=== PATIENT | female | born 1965 | race Caucasian/White ===

== ENCOUNTER → 2016-06-08 | Day surgery (SDC) | payer BC, OTHER ==
[~2016-06-08] MED LIST: BUPR150CR PO; IMIT50TA PO; LACTATED RINGER'S 1000 ML INJ 1,000 ML ONE; LEXA10TA PO; MOBI7.5T PO; PROPOFOL 100 MG/10 ML INJ IV ONE; PROPOFOL 500 MG/50 ML BTL IV ONE
== END | disposition home or self-care (01) ==
LOC: ESDC 08:53
PROVIDERS: ATTEND Internal Medicine Gastroenterology
DX: R19.7 Diarrhea, unspecified (principal); D12.4 Benign neoplasm of descending colon; K57.90 Diverticulosis of intestine, part unspecified, without perforation or abscess without bleeding; R10.13 Epigastric pain; R11.10 Vomiting, unspecified
CPT/HCPCS: 00740; 00810; 43235; 45380; 45385; 88305; J3010; J7120

== ENCOUNTER 2016-12-17 08:01 | Emergency (ER) | payer SELFPAY ==
[~2016-12-17] VITALS: Ht 170.2 cm; Wt 137.0 kg
[~2016-12-17 08:01] MED LIST changes: -LACTATED RINGER'S 1000 ML INJ 1,000 ML ONE; -PROPOFOL 100 MG/10 ML INJ IV ONE; -PROPOFOL 500 MG/50 ML BTL IV ONE
[2016-12-17 08:20] VITALS: BP 124/64; PULSE 93; RESP 16; TEMP 98.2; O2SAT 98
[2016-12-17] MEDS ORDERED: METF500T PO (08:30)
[2016-12-17] MEDS ORDERED: LISI2.5T3 PO (08:30)
--- NOTE | 2016-12-17 08:35 | PD ---
HPI Chief Complaint: Injury Time Seen by Provider: 08:32 Travel History International Travel<30 days: No Contact w/Intl Traveler<30days: No Traveled to known affect area: No History of Present Illness HPI This patient complains of injury to her right ankle. Duration is one day. This happened yesterday evening. She tripped when she stepped into a divot in the ground. She rolled her right ankle. She has pain with weightbearing. PFSH Past Medical History Asthma: Yes (SEASONAL) Anxiety: Yes Depression: Yes Cancer: No Cardiovascular Problems: Yes (HTN) Diminished Hearing: No Hypertension: Yes Respiratory: Yes (seasonal asthma,PNEUMONIA) Immunizations Current: Yes ?: Not LMP: MENOPAUSAL Menopausal: Yes Past Surgical History Cholecystectomy: Yes Tonsillectomy: Yes (1972) Other Surgery: Yes (gastric bypass 2008) Social History Alcohol Use: Yes (states 1/2 - 1 bottle of wine daily ) Tobacco Use: No Substance Use: No (Denies) Allergies-Medications (Allergen,Severity, Reaction): Coded Allergies: Morphine (Unverified Allergy, Severe, "MY BODY SHUTS DOWN", 12/17/16) Amoxicillin (Verified Allergy, Intermediate, VOMITING, 12/17/16) Penicillin (Verified Allergy, Intermediate, UNKNOWN, 12/17/16) Adhesives (Verified Allergy, Unknown, welts, 12/17/16) Codeine (Verified Allergy, Unknown, Nausea/Vomiting, 12/17/16) Reported Meds & Prescriptions Reported Meds & Active Scripts Active Percocet (Oxycodone-Acetaminophen) 5-325 mg Tab 1 Tab PO Q6H PRN Imitrex (Sumatriptan Succinate) 50 Mg Tab 50 Mg PO ONCE PRN If a satisfactory response has not been obtained at 2 hours, a second dose may be administered Reported Lisinopril 2.5 Mg Tab Unknown Dose PO DAILY Metformin (Metformin HCl) 500 Mg Tab 500 Mg PO BIDPC With meals Lexapro (Escitalopram Oxalate) 10 Mg Tab 10 Mg PO DAILY Wellbutrin SR 12 HR (Bupropion HCl) 150 Mg Tab 150 Mg PO Q12HR Review of Systems General / Constitutional: No: Fever Eyes: No: Visual changes HENT: No: Headaches Cardiovascular: No: Chest Pain or Discomfort Respiratory: No: Shortness of Breath Gastrointestinal: No: Abdominal Pain Genitourinary: No: Dysuria Musculoskeletal: Positive: Pain Skin: No Rash Neurologic: No: Weakness Psychiatric: No: Depression Endocrine: No: Polydipsia Hematologic/Lymphatic: No: Easy Bruising Physical Exam Narrative SKIN: Focused skin assessment reveals no rash or ulcers. Skin is warm and dry. Palpation shows no induration or nodules. Psych: Normal mood and affect. Normal insight and judgment. Right ankle: There is some tenderness and swelling about the lateral malleolus. No open wound. Neurovascularly intact. Data Data Last Documented VS Vital Signs Date Time Temp Pulse Resp B/P Pulse Ox O2 Delivery O2 Flow Rate FiO2 12/17/16 08:20 98.2 93 16 124/64 98 Orders Ankle, Complete ([id number]) (12/17/16 ) MDM Medical Decision Making Medical Screen Exam Complete: Yes Emergency Medical Condition: Yes Medical Record Reviewed: Yes Differential Diagnosis Ankle fracture, ankle sprain, dislocation Narrative Course I have reviewed the patient's electronic medical record. I Reviewed her right ankle x-rays which show a nondisplaced distal fibular fracture Ice applied I placed her in a splint and gave her crutches Diagnosis Primary Impression: Right fibular fracture Qualified Code: S82.831A - Other closed fracture of distal end of right fibula , initial encounter Additional Instructions: The patient was advised to follow up with orthopedist and return if they worsen. The patient was warned about potential sedation for the medications they will receive on prescription. Med/Other Pt SpecificInfo: Prescription(s) given Scripts Oxycodone-Acetaminophen (Percocet)5-325 mg Tab1 Tab PO Q6H PRN (PAIN) #20 TAB Ref 0 Prov:Terence Carnes MD 12/17/16 Disposition: 01 DISCHARGE HOME Condition: Stable Terence Carnes MD Dec 17, 2016 08:35
--- NOTE | 2016-12-17 09:36 | RADRPT ---
EXAM DATE/TIME: 12/17/2016 09:04 [facility] COMPARISON: No previous studies available for comparison. INDICATIONS : Lateral right ankle pain and swelling. Patient fell yesterday. MEDICAL HISTORY : None. SURGICAL HISTORY : None. ENCOUNTER: Initial ACUITY: 2 days PAIN SCORE: 10/10 LOCATION: Right lateral ankle. FINDINGS: There is horizontal lucency involving the distal fibula consistent with probable nondisplaced fibular fracture. Soft tissue swelling is noted along the lateral malleolus. Plantar and Achilles calcanea l spurring is noted. There is also calcification involving the distal fibers of the Achilles tendon. CONCLUSION: 1. Horizontal linear lucency involving the distal fibula consistent with nondisplaced fracture. Cli nical correlation is recommended. 2. Soft tissue swelling involving the lateral malleolus. 3. Prominent plantar and Achilles calcaneal spurring as well as calcification involving the distal f ibers of the Achilles tendon. Meir Real MD on December 17, 2016 at 9:21 Board Certified Radiologist. This report was verified electronically.
[2016-12-17] MEDS ORDERED: PERC5TAB12 PO (09:55)
[2016-12-17 11:00] VITALS: BP 136/82
== END 2016-12-17 11:02 | disposition home or self-care (01) ==
LOC: PHED 08:01
DX: S82.831A Other fracture of upper and lower end of right fibula, initial encounter for closed fracture (principal); W17.2XXA Fall into hole, initial encounter
CPT/HCPCS: 29515; 73610; 99283; E0113

== ENCOUNTER → 2016-12-25 | Outpatient (CLI) | payer SELFPAY ==
[~2016-12-25] MED LIST changes: +LISI2.5T3 PO; +METF500T PO; -MOBI7.5T PO; +PERC5TAB12 PO
== END ==
LOC: HORT 12:07
PROVIDERS: ATTEND Orthopaedic Surgery
DX: Z46.89 Encounter for fitting and adjustment of other specified devices (principal); S82.821A Torus fracture of lower end of right fibula, initial encounter for closed fracture
CPT/HCPCS: L2114

== ENCOUNTER 2017-08-13 11:28 | Observation (INO) | payer SELFPAY ==
[~2017-08-13] VITALS: Ht 170.2 cm; Wt 135.9 kg
[2017-08-13 11:32] VITALS: BP 179/110; PULSE 104; RESP 16; TEMP 98.4; O2SAT 99
--- NOTE | 2017-08-13 11:55 | PD ---
HPI Chief Complaint: Neuro Symptoms/ Deficits Time Seen by Provider: 11:52 Travel History International Travel<30 days: No Contact w/Intl Traveler<30days: No Traveled to known affect area: No History of Present Illness HPI 52-year-old male female patient presents to the ER today, states that 2 days ago she had some left-sided chest discomfort and tingling in her left fingers that went away, and has been nauseous for the last few days, and states that she is having that feeling again and feels generally weak. She denies any fevers, abdominal pains, vomiting, or other issues. Modifying Factors: None Associated Signs & Symptoms: Nausea, left-sided chest discomfort, tingling in the left hand, general weakness Risk Factors: None PFSH Past Medical History Asthma: Yes (SEASONAL) Anxiety: Yes Depression: Yes (intermittent) Cancer: No Cardiovascular Problems: Yes (HTN) Diminished Hearing: No Hypertension: Yes Respiratory: Yes (seasonal asthma,PNEUMONIA) Immunizations Current: Yes Menopausal: Yes Past Surgical History Cholecystectomy: Yes Tonsillectomy: Yes (1972) Other Surgery: Yes (gastric bypass 2008) Social History Alcohol Use: Yes (states 2-3 glasses of wine daily ) Tobacco Use: No (never) Substance Use: No (Denies) Allergies-Medications (Allergen,Severity, Reaction): Coded Allergies: morphine (Unverified Allergy, Severe, "MY BODY SHUTS DOWN", 08/13/17) amoxicillin (Unverified Allergy, Intermediate, VOMITING, 08/13/17) penicillin G (Unverified Allergy, Intermediate, UNKNOWN, 08/13/17) adhesive (Unverified Allergy, Unknown, welts, 08/13/17) codeine (Unverified Allergy, Unknown, Nausea/Vomiting, 08/13/17) Reported Meds & Prescriptions Reported Meds & Active Scripts Active Imitrex (Sumatriptan Succinate) 50 Mg Tab 50 Mg PO ONCE PRN If a satisfactory response has not been obtained at 2 hours, a second dose may be administered Reported Lisinopril-Hctz 20-12.5 mg Tab (Lisinopril/Hydrochlorothiazide) 20 Mg-12.5 Mg Tablet 1 Tab PO DAILY Metformin (Metformin HCl) 500 Mg Tab 500 Mg PO BIDPC With meals Lexapro (Escitalopram Oxalate) 10 Mg Tab 10 Mg PO DAILY Wellbutrin SR 12 HR (Bupropion HCl) 150 Mg Tab 150 Mg PO Q12HR Review of Systems Except as stated in HPI: all other systems reviewed are Neg Physical Exam Narrative GENERAL: Well-developed middle-age female patient currently and mild distress. Awake and oriented 3. SKIN: Focused skin assessment warm/dry. HEAD: Atraumatic. Normocephalic. EYES: Pupils equal and round. No scleral icterus. No injection or drainage. ENT: No nasal bleeding or discharge. Mucous membranes pink and moist. NECK: Trachea midline. No JVD. Supple. CARDIOVASCULAR: Regular rate and rhythm. No murmur appreciated. Pulses are present and equal bilaterally. RESPIRATORY: No accessory muscle use. Clear to auscultation. Breath sounds equal bilaterally. GASTROINTESTINAL: Abdomen soft, non-tender, nondistended. Hepatic and splenic margins not palpable. MUSCULOSKELETAL: No obvious deformities. No clubbing. No cyanosis. No edema. NEUROLOGICAL: Awake and alert. No obvious cranial nerve deficits. Motor grossly within normal limits. Normal speech. No pronator drift. PSYCHIATRIC: Appropriate mood and affect; insight and judgment normal. Data Data Last Documented VS Vital Signs Date Time Temp Pulse Resp B/P (MAP) Pulse Ox O2 Delivery O2 Flow Rate FiO2 08/13/17 13:13 90 18 182/103 (129) 99 Room Air 08/13/17 11:32 98.4 Orders Orders Electrocardiogram (08/13/17 11:52) Complete Blood Count With Diff (08/13/17 11:52) Comprehensive Metabolic Panel (08/13/17 11:52) Magnesium (Mg) (08/13/17 11:52) Ckmb (Isoenzyme) Profile (08/13/17 11:52) Troponin I (08/13/17 11:52) Act Partial Throm Time (Ptt) (08/13/17 11:52) Prothrombin Time / Inr (Pt) (08/13/17 11:52) Chest, Single Ap (08/13/17 11:52) Ct Brain W/O Iv Contrast(Rout) (08/13/17 11:52) Ecg Monitoring (08/13/17 11:52) Iv Access Insert/Monitor (08/13/17 11:52) Oximetry (08/13/17 11:52) Sodium Chloride 0.9% Flush (Ns Flush) (08/13/17 12:00) Metoclopramide Inj (Reglan Inj) (08/13/17 13:00) Admit Order (Ed Use Only) (08/13/17 13:36) Labs Laboratory Tests Test 08/13/17 12:25 White Blood Count 5.5 TH/MM3 Red Blood Count 4.66 MIL/MM3 Hemoglobin 15.1 GM/DL Hematocrit 46.1 % Mean Corpuscular Volume 99.0 FL Mean Corpuscular Hemoglobin 32.5 PG Mean Corpuscular Hemoglobin Concent 32.9 % Red Cell Distribution Width 15.5 % Platelet Count 224 TH/MM3 Mean Platelet Volume 7.9 FL Neutrophils (%) (Auto) 71.9 % Lymphocytes (%) (Auto) 18.0 % Monocytes (%) (Auto) 8.3 % Eosinophils (%) (Auto) 0.6 % Basophils (%) (Auto) 1.2 % Neutrophils # (Auto) 3.9 TH/MM3 Lymphocytes # (Auto) 1.0 TH/MM3 Monocytes # (Auto) 0.5 TH/MM3 Eosinophils # (Auto) 0.0 TH/MM3 Basophils # (Auto) 0.1 TH/MM3 CBC Comment DIFF FINAL Differential Comment Prothrombin Time 11.4 SEC Prothromb Time International Ratio 1.1 RATIO Activated Partial Thromboplast Time 26.8 SEC Blood Urea Nitrogen 9 MG/DL Creatinine 0.95 MG/DL Random Glucose 101 MG/DL Total Protein 7.2 GM/DL Albumin 3.3 GM/DL Calcium Level 9.3 MG/DL Magnesium Level 1.9 MG/DL Alkaline Phosphatase 125 U/L Aspartate Amino Transf (AST/SGOT) 37 U/L Alanine Aminotransferase (ALT/SGPT) 27 U/L Total Bilirubin 1.0 MG/DL Sodium Level 137 MEQ/L Potassium Level 3.6 MEQ/L Chloride Level 98 MEQ/L Carbon Dioxide Level 27.1 MEQ/L Anion Gap 12 MEQ/L Estimat Glomerular Filtration Rate 62 ML/MIN Total Creatine Kinase 95 U/L Troponin I LESS THAN 0.02 NG/ML MDM Medical Decision Making Medical Screen Exam Complete: Yes Emergency Medical Condition: Yes Medical Record Reviewed: Yes Interpretation(s) EKG shows NSR, no ST elevation or depression, and no arrhythmias. No significant T-wave inversions. Laboratory Tests Test 08/13/17 12:25 Hematocrit 46.1 % (35.0-46.0) Neutrophils (%) (Auto) 71.9 % (16.0-70.0) Monocytes (%) (Auto) 8.3 % (0.0-8.0) Albumin 3.3 GM/DL (3.4-5.0) Alkaline Phosphatase 125 U/L (45-117) Estimat Glomerular Filtration Rate 62 ML/MIN (>89) Troponin I LESS THAN 0.02 NG/ML Last [address] 08/13/17 1152 Signed Impressions: Service Date/Time: Sunday, August 13, 2017 12:07 - CONCLUSION: No acute intracranial abnormality is identified. Juan Garcia MD Chest X-Ray 08/13/17 1152 Signed Impressions: Service Date/Time: Sunday, August 13, 2017 12:17 - CONCLUSION: No acute cardiopulmonary abnormality is identified. Juan Garcia MD Differential Diagnosis Finger tingling, left-sided chest discomfort, nausea, general weakness: Dehydration versus metabolic issues versus dysrhythmias versus ACS versus anxiety versus acute intracranial processes Narrative Course Patient has no signs of significant focal neurological deficits. CT the brain was negative for any signs of acute intracranial processes. Chest x-ray was unremarkable. Pulses are present and equal bilaterally. EKG and troponins were negative. At this point, I am fairly concerned about the chest discomfort and my plan would be to admit her for further evaluation and a chest pain center. Case was discussed with Dr. Calhoun for admission. Diagnosis Primary Impression: Chest pain Admitting Information Admitting Physician Requests: Admit Serina Cole MD Aug 13, 2017 11:55
[2017-08-13] MEDS ORDERED: SODIUM CHLORIDE 0.9% FLUSH 10 ML FLUSH IVF PRN (12:00)
[2017-08-13] MEDS ORDERED: LISI20TA PO (12:12)
--- NOTE | 2017-08-13 12:28 | RADRPT ---
EXAM DATE/TIME: 08/13/2017 12:07 [facility] COMPARISON: No previous studies available for comparison. INDICATIONS : Disoriented, weakness, nausea, vomiting and diarrhea. RADIATION DOSE: 63.48 CTDIvol (mGy) MEDICAL HISTORY : Hypertension. Asthma. SURGICAL HISTORY : Gastric bypass. Cholecystectomy. ENCOUNTER: Initial ACUITY: 3 days PAIN SCALE: 3/10 LOCATION: Right cranial TECHNIQUE: Multiple contiguous axial images were obtained of the head. Using automated exposure control and adj ustment of the mA and/or kV according to patient size, radiation dose was kept as low as reasonably a chievable to obtain optimal diagnostic quality images. DICOM format image data is available electro nically for review and comparison. FINDINGS: CEREBRUM: The ventricles are normal. No evidence of midline shift, mass lesion, hemorrhage or acute infarction . No extra-axial fluid collections are seen. POSTERIOR FOSSA: The cerebellum and brainstem are intact. The 4th ventricle is midline. The cerebellopontine angle i s unremarkable. EXTRACRANIAL: Visualized sinuses are clear. SKULL: The calvaria is intact. No evidence of skull fracture. CONCLUSION: No acute intracranial abnormality is identified. Juan Garcia MD on August 13, 2017 at 12:24 Board Certified Radiologist. This report was verified electronically.
[2017-08-13 12:37] LABS: AUTOMATED NEUTROPHIL # 3.9 TH/MM3 (1.8-7.7); BASOPHIL # 0.1 TH/MM3 (0-0.2); BASOPHIL % 1.2 % (0.0-2.0); EOSINOPHIL % 0.6 % (0.0-4.0); HEMATOCRIT 46.1 % (35.0-46.0); HEMOGLOBIN 15.1 GM/DL (11.6-15.3); MEAN CORPUSCULAR HEMOGLOBIN 32.5 PG (27.0-34.0); MEAN CORPUSCULAR HGB CONC 32.9 % (32.0-36.0); MEAN PLATELET VOLUME 7.9 FL (7.0-11.0); MONO % 8.3 % (0.0-8.0); MONOCYTE # 0.5 TH/MM3 (0-0.9); NEUT % 71.9 % (16.0-70.0); PLATELET COUNT 224 TH/MM3 (150-450); RED BLOOD COUNT 4.66 MIL/MM3 (4.00-5.30); RED CELL DISTRIBUTION WIDTH 15.5 % (11.6-17.2); WHITE BLOOD COUNT 5.5 TH/MM3 (4.0-11.0)
--- NOTE | 2017-08-13 12:44 | RADRPT ---
EXAM DATE/TIME: 08/13/2017 12:17 [facility] COMPARISON: CHEST SINGLE AP, September 17, 2015, 8:52. INDICATIONS : Chest palpitations MEDICAL HISTORY : None. SURGICAL HISTORY : None. ENCOUNTER: Initial ACUITY: 1 day PAIN SCORE: 3/10 LOCATION: Bilateral chest FINDINGS: Portable AP view of the chest demonstrates a normal-sized cardiac silhouette. The lungs demonstrate n o definite effusion, consolidation, or pneumothorax. The bones and soft tissues demonstrate no acute finding. CONCLUSION: No acute cardiopulmonary abnormality is identified. Juan Garcia MD on August 13, 2017 at 12:42 Board Certified Radiologist. This report was verified electronically.
[2017-08-13 12:46] LABS: CHLORIDE 98 MEQ/L (98-107); SODIUM (NA) 137 MEQ/L (136-145)
[2017-08-13 12:49] LABS: ALBUMIN 3.3 GM/DL (3.4-5.0); BICARBONATE 27.1 MEQ/L (21.0-32.0); CALCIUM 9.3 MG/DL (8.5-10.1); GLUCOSE,RANDOM 101 MG/DL (74-106); INTERNATIONAL NORMALIZED RATIO 1.1 RATIO; MAGNESIUM 1.9 MG/DL (1.5-2.5); PROTHROMBIN TIME - PATIENT 11.4 SEC (9.8-11.6)
[2017-08-13 12:50] LABS: BLOOD UREA NITROGEN 9 MG/DL (7-18)
[2017-08-13 12:52] LABS: ALT (GPT) 27 U/L (10-53); AST (GOT) 37 U/L (15-37)
[2017-08-13 12:53] LABS: CREATININE 0.95 MG/DL (0.50-1.00); GLOMERULAR FILTRATION RATE 62 ML/MIN (>89)
[2017-08-13 12:54] LABS: TOTAL PROTEIN 7.2 GM/DL (6.4-8.2)
[2017-08-13 12:55] LABS: ALKALINE PHOSPHATASE 125 U/L (45-117)
[2017-08-13 12:57] LABS: TROPONIN I LESS THAN 0.02 NG/ML (0.02-0.05)
[2017-08-13] MEDS ORDERED: METOCLOPRAMIDE HCL 10 MG/2 ML VIAL IV PUSH ONE (13:00)
[2017-08-13 13:13] VITALS: BP 182/103; PULSE 90; RESP 18; O2SAT 99
[2017-08-13] MEDS ORDERED: ASPIRIN 325 MG TAB PO ONE (13:45)
[2017-08-13] MEDS ORDERED: DEXTROSE 50% IN WATER 50 ML VIAL(D50) IV PUSH PRN (14:15)
[2017-08-13] MEDS ORDERED: MAGNESIUM HYDROXIDE SUSP 30 ML CUP PO PRN (14:15)
[2017-08-13] MEDS ORDERED: BISACODYL 10 MG SUPP RECTAL PRN (14:15)
[2017-08-13] MEDS ORDERED: NALOXONE HCL 0.4 MG/ML AMP IV PUSH PRN (14:15)
[2017-08-13] MEDS ORDERED: NITROGLYCERIN 2% OINT 1 GM PACKET TOPICAL SCH (14:15)
[2017-08-13] MEDS ORDERED: ONDANSETRON HCL 4 MG/2 ML VIAL IVP PRN (14:15)
[2017-08-13] MEDS ORDERED: GLUCAGON 1 MG/ML VIAL OTHER PRN (14:15)
[2017-08-13] MEDS ORDERED: cloNIDine HCL 0.1 MG TAB PO PRN (14:15)
[2017-08-13] MEDS ORDERED: ACETAMINOPHEN 325 MG TAB PO PRN (14:15)
[2017-08-13] MEDS ORDERED: SODIUM CHLORIDE 0.9% FLUSH 10 ML FLUSH IV FLUSH PRN (14:15)
[2017-08-13] MEDS ORDERED: SENNOSIDES 8.6 MG TAB PO PRN (14:15)
[2017-08-13 14:43] VITALS: BP 161/102; PULSE 95; RESP 18; O2SAT 99
--- NOTE | 2017-08-13 14:43 | HHI.HP ---
[facility] Service [place] [facility] Primary Care Physician Markos De La O MD Admission Diagnosis Chest pain Diagnoses: (1) Numbness and tingling in left upper extremity (2) Hypertension Chief Complaint: Left upper extremity numbness and tingling Travel History International Travel<30 Days: No Contact w/Intl Traveler <30 Da: No Traveled to Known Affected Are: No History of Present Illness This is a pleasant 52-year-old female patient with a known medical history of hypertension, diabetes and history of TIA who presented to the ED with complaints of 3 days of nausea, vomiting and diarrhea with associated left arm and finger numbness and tingling. Patient states that she has been drinking alcohol, 3 glasses of wine for the last 4 years. She states that last weekend she went on a binge due to increased stressors and beginning roughly Wednesday afternoon she developed inability to tolerate p.o. intake, nausea, vomiting and diarrhea. She states she went to bed that night and woke up feeling worse and unable to tolerate anything by mouth the entire day. She eventually started to feel better yesterday and ate a small dinner and went to sleep. This morning she woke up with a dull headache and left upper extremity tingling and numbness. She states this lasted about 40 seconds and went away on its own. She denies any chest pain. She denies any associated shortness of breath or diplopia or lightheadedness or dizziness. She says she feels dehydrated due to inability to tolerate p.o. intake for 3 days. Patient does admit to a history of a TIA in the past, with similar symptoms as above, but at that time did not seek medical care and symptom resolved on its own. PCP is Dr. Tripathi. Review of Systems Constitutional: DENIES: Fever, Chills Eyes: DENIES: Blurred vision, Diplopia Respiratory: DENIES: Cough, Shortness of breath Cardiovascular: DENIES: Chest pain, Palpitations Gastrointestinal: COMPLAINS OF: Diarrhea, Nausea, Vomiting, DENIES: Abdominal pain, Black stools, Bloody stools, Constipation Musculoskeletal: DENIES: Joint pain Psychiatric: COMPLAINS OF: Anxiety Except as stated in HPI: all other systems reviewed are Neg Past Family Social History Past Medical History Diabetes Hypertension History of TIA Asthma Anxiety and depression Past Surgical History Cholecystectomy Tonsillectomy Gastric bypass 2009 Reported Medications Active Imitrex (Sumatriptan Succinate) 50 Mg Tab 50 Mg PO ONCE PRN If a satisfactory response has not been obtained at 2 hours, a second dose may be administered Reported Lisinopril-Hctz 20-12.5 mg Tab (Lisinopril/Hydrochlorothiazide) 20 Mg-12.5 Mg Tablet 1 Tab PO DAILY Metformin (Metformin HCl) 500 Mg Tab 500 Mg PO BIDPC With meals Lexapro (Escitalopram Oxalate) 10 Mg Tab 10 Mg PO DAILY Wellbutrin SR 12 HR (Bupropion HCl) 150 Mg Tab 150 Mg PO Q12HR Allergies: Coded Allergies: morphine (Unverified Allergy, Severe, "MY BODY SHUTS DOWN", 08/13/17) amoxicillin (Unverified Allergy, Intermediate, VOMITING, 08/13/17) penicillin G (Unverified Allergy, Intermediate, UNKNOWN, 08/13/17) adhesive (Unverified Allergy, Unknown, welts, 08/13/17) codeine (Unverified Allergy, Unknown, Nausea/Vomiting, 08/13/17) Active Ordered Medications Current Medications Medications (Trade) Dose Ordered Sig/Codey Route Start Time Stop Time Status Last Admin (NS Flush) 2 ml UNSCH PRN IVF 08/13/17 12:00 (NS Flush) 2 ml UNSCH PRN IV FLUSH 08/13/17 14:15 UNV (NS Flush) 2 ml BID IV FLUSH 08/13/17 21:00 UNV (Tylenol) 650 mg Q4H PRN PO 08/13/17 14:15 UNV (Zofran Inj) 4 mg Q6H PRN IVP 08/13/17 14:15 UNV (Narcan Inj) 0.4 mg UNSCH PRN IV PUSH 08/13/17 14:15 UNV (Danita-Colace) 1 tab BID PO 08/13/17 21:00 UNV (Milk Of Magnesia Liq) 30 ml Q12H PRN PO 08/13/17 14:15 UNV (Senokot) 17.2 mg Q12H PRN PO 08/13/17 14:15 UNV (Dulcolax Supp) 10 mg DAILY PRN RECTAL 08/13/17 14:15 UNV (Wellbutrin Sr) 150 mg Q12HR PO 08/13/17 21:00 UNV (Lexapro) 10 mg DAILY PO 08/14/17 09:00 UNV (Imitrex) 50 mg ONCE PRN PO 08/13/17 14:15 UNV Non-Formulary Medication 1 tab DAILY PO 08/14/17 09:00 UNV (Catapres) 0.1 mg Q6H PRN PO 08/13/17 14:15 UNV (D50w (Vial) Inj) 50 ml UNSCH PRN IV PUSH 08/13/17 14:15 UNV (Glucagon Inj) 1 mg UNSCH PRN OTHER 08/13/17 14:15 UNV (NovoLOG SUPPLEMENTAL SCALE) 1 ACHS SLIDING SCALE SQ 08/13/17 17:00 UNV (Aspirin Chew) 81 mg DAILY CHEW 08/14/17 09:00 UNV (Nitroglycerin 2% Oint) 0.5 inch Q8HR TOPICAL 08/13/17 14:15 UNV Family History Patient denies any significant history of cardiovascular disease. Paternal medical history significant for cervical cancer. Paternal medical history significant for esophageal cancer. Social History Patient denies any history of or present tobacco use. States that she does drink 3 glasses of wine daily for the past 4 years. Denies any illicit drug use. Physical Exam Vital Signs Vital Signs Date Time Temp Pulse Resp B/P (MAP) Pulse Ox O2 Delivery O2 Flow Rate FiO2 08/13/17 13:13 90 18 182/103 (129) 99 Room Air 08/13/17 13:13 99 Room Air 08/13/17 11:56 Room Air 08/13/17 11:32 98.4 104 16 179/110 (133) 99 Physical Exam GENERAL: Well-developed, well-nourished patient in NAD. SKIN: Warm and dry. No rash. HEAD: Normocephalic. Atraumatic. EYES: Pupils equal and round. No scleral icterus. No injection or drainage. ENT: No nasal bleeding or discharge. Mucous membranes pink and moist. NECK: Supple. Trachea midline. CARDIOVASCULAR: Regular rate and rhythm. S1, S2 noted. No murmur appreciated. No chest pain to palpation. RESPIRATORY: No accessory muscle use. Clear to auscultation. Breath sounds equal bilaterally. GASTROINTESTINAL: Abdomen soft, non-tender, nondistended. Normoactive bowel sounds x4. MUSCULOSKELETAL: No obvious deformities. Extremities without clubbing, cyanosis , or edema. NEUROLOGICAL: Awake and alert. No obvious cranial nerve deficits. Motor grossly within normal limits. 5/5 muscle strength in bilateral upper and lower extremities. Normal speech. Denies any numbness or tingling in left upper extremity. PSYCHIATRIC: Appropriate mood and affect; insight and judgment normal. Laboratory Laboratory Tests Test 08/13/17 12:25 White Blood Count 5.5 Red Blood Count 4.66 Hemoglobin 15.1 Hematocrit 46.1 Mean Corpuscular Volume 99.0 Mean Corpuscular Hemoglobin 32.5 Mean Corpuscular Hemoglobin Concent 32.9 Red Cell Distribution Width 15.5 Platelet Count 224 Mean Platelet Volume 7.9 Neutrophils (%) (Auto) 71.9 Lymphocytes (%) (Auto) 18.0 Monocytes (%) (Auto) 8.3 Eosinophils (%) (Auto) 0.6 Basophils (%) (Auto) 1.2 Neutrophils # (Auto) 3.9 Lymphocytes # (Auto) 1.0 Monocytes # (Auto) 0.5 Eosinophils # (Auto) 0.0 Basophils # (Auto) 0.1 CBC Comment DIFF FINAL Differential Comment Prothrombin Time 11.4 Prothromb Time International Ratio 1.1 Activated Partial Thromboplast Time 26.8 Blood Urea Nitrogen 9 Creatinine 0.95 Random Glucose 101 Total Protein 7.2 Albumin 3.3 Calcium Level 9.3 Magnesium Level 1.9 Alkaline Phosphatase 125 Aspartate Amino Transf (AST/SGOT) 37 Alanine Aminotransferase (ALT/SGPT) 27 Total Bilirubin 1.0 Sodium Level 137 Potassium Level 3.6 Chloride Level 98 Carbon Dioxide Level 27.1 Anion Gap 12 Estimat Glomerular Filtration Rate 62 Total Creatine Kinase 95 Troponin I LESS THAN 0.02 Result Diagram: 08/13/17 1225 08/13/17 1225 Imaging Last Impressions Head CT 08/13/17 1152 Signed Impressions: Service Date/Time: Sunday, August 13, 2017 12:07 - CONCLUSION: No acute intracranial abnormality is identified. Juan Garcia MD Chest X-Ray 08/13/17 1152 Signed Impressions: Service Date/Time: Sunday, August 13, 2017 12:17 - CONCLUSION: No acute cardiopulmonary abnormality is identified. Juan Garcia MD Septic Shock Reassessment Septic shock perfusion: reassessment completed Caprini VTE Risk Assessment Caprini VTE Risk Assessment: No/Low Risk (score <= 1) Caprini Risk Assessment Model Point Value = 1 Point Value = 2 Point Value = 3 Point Value = 5 Age 41-60 Minor surgery BMI > 25 kg/m2 Swollen legs Varicose veins or History of unexplained or recurrent spontaneous Oral contraceptives or hormone replacement Sepsis (< 1 month) Serious lung disease, including pneumonia (< 1 month) Abnormal pulmonary function Acute myocardial infarction Congestive heart failure (< 1 month) History of inflammatory bowel disease Medical patient at bed rest Age 61-74 Arthroscopic surgery Major open surgery (> 45 min) Laparoscopic surgery (> 45 min) Malignancy Confined to bed (> 72 hours) Immobilizing plaster cast Central venous access Age >= 75 History of VTE Family history of VTE Factor V Leiden Prothrombin [id number] Lupus anticoagulant Anticardiolipin antibodies Elevated serum homocysteine Heparin-induced thrombocytopenia Other congenital or acquired thrombophilia Stroke (< 1 month) Elective arthroplasty Hip, pelvis, or leg fracture Acute spinal cord injury (< 1 month) Prophylaxis Regimen Total Risk Factor Score Risk Level Prophylaxis Regimen 0-1 Low Early ambulation 2 Moderate Order ONE of the following: *Sequential Compression Device (SCD) *Heparin 5000 units SQ BID 3-4 Higher Order ONE of the following medications: *Heparin 5000 units SQ TID *Enoxaparin/Lovenox 40 mg SQ daily (WT < 150 kg, CrCl > 30 mL/min) *Enoxaparin/Lovenox 30 mg SQ daily (WT < 150 kg, CrCl > 10-29 mL/min) *Enoxaparin/Lovenox 30 mg SQ BID (WT < 150 kg, CrCl > 30 mL/min) AND/OR *Sequential Compression Device (SCD) 5 or more Highest Order ONE of the following medications: *Heparin 5000 units SQ TID (Preferred with Epidurals) *Enoxaparin/Lovenox 40 mg SQ daily (WT < 150 kg, CrCl > 30 mL/min) *Enoxaparin/Lovenox 30 mg SQ daily (WT < 150 kg, CrCl > 10-29 mL/min) *Enoxaparin/Lovenox 30 mg SQ BID (WT < 150 kg, CrCl > 30 mL/min) AND *Sequential Compression Device (SCD) Assessment and Plan Problem List: (1) Numbness and tingling in left upper extremity ICD Code: R20.0 - Anesthesia of skin; R20.2 - Paresthesia of skin (2) Hypertension ICD Code: I10 - Essential (primary) hypertension Assessment and Plan This is a pleasant 52-year-old female patient with a known medical history of hypertension, diabetes and history of TIA who presented to the ED with complaints of 3 days of nausea, vomiting and diarrhea with associated left arm and finger numbness and tingling. Left upper extremity numbness and tingling rule out acute CVA/TIA versus uncontrolled hypertension - Head CT reviewed upon presentation showing normal examination. Order for brain MRI. Follow. - Hemoglobin A1c and lipid panel pending. Follow. - Allow some permissive hypertension at this time. -Chest x-ray reviewed showing no acute cardiopulmonary abnormality. Supplemental O2 as needed. Patient is comfortable on room air. - Continue to monitor cardiac telemetry for any arrhythmias. EKG reviewed, sinus rhythm with controlled heart rate, no ST changes to indicate ischemia. Will rule out any possibility of ACS, serial EKGs and serial troponins ordered. - Allow patient to eat tonight. Keep n.p.o. after midnight if stress test is indicated. - CBC and BMP reviewed, essentially unremarkable. Hypertension, chronic and uncontrolled: Patient presented with significant elevated blood pressure. Restarted on home medications. Added clonidine as needed. Monitor BP trends. Alcoholism, chronic: Patient encouraged cessation of alcohol. Patient states she is receiving counseling. Placed on CIWA protocol. Monitor for seizures. Monitor for withdrawals. Type II diabetes mellitus, chronic: Accu-Chek before meals at bedtime, sliding scale, cover as needed. Will hold metformin at this time. Will check a hemoglobin A1c, follow. Depression, chronic: Continue home medications. Supportive care. DVT prophylaxis: SCDs. Nichole Tracy Aug 13, 2017 14:43
[2017-08-13] MEDS ORDERED: FLUMAZENIL 0.5 MG/5 ML VIAL IV PUSH PRN (15:00)
[2017-08-13] MEDS ORDERED: SUMAtriptan SUCCINATE 50 MG TAB PO PRN (15:00)
[2017-08-13] MEDS ORDERED: LORazepam 1 MG TAB PO PRN (15:00)
[2017-08-13] MEDS ORDERED: LORazepam 2 MG/ML VIAL IV PUSH PRN ×4 (15:00)
[2017-08-13] MEDS ORDERED: LORazepam 2 MG TAB PO PRN (15:00)
[2017-08-13] MEDS ORDERED: SODIUM CHLOR 0.9% 1000 ML INJ 1,000 ML IV SCH (15:00)
[2017-08-13 15:47] VITALS: BP 159/96; PULSE 90; RESP 20; O2SAT 99
[2017-08-13 15:51] LABS: TROPONIN I LESS THAN 0.02 NG/ML (0.02-0.05)
[2017-08-13 16:00] VITALS: BP 134/86; PULSE 86; RESP 18; TEMP 97.2; O2SAT 97
[2017-08-13] MEDS ORDERED: LORazepam 2 MG/ML VIAL IV PUSH ONE (16:45)
[2017-08-13] MEDS: INSULIN ASPART SUPPLEMENTAL SCALE SQ SCH ×2 (17:00→21:00)
--- NOTE | 2017-08-13 18:12 | RADRPT ---
EXAM DATE/TIME: 08/13/2017 17:46 [facility] COMPARISON: No previous studies available for comparison. INDICATIONS : CVA. Tingling left side. MEDICAL HISTORY : Diabetes mellitus type 2. Hypertension. SURGICAL HISTORY : Cholecystectomy. Gastric bypass. Tonsillectomy. ENCOUNTER: Initial ACUITY: 2 day PAIN SCORE: 0/10 LOCATION: Head TECHNIQUE: Multiplanar, multisequence MRI of the brain was performed without contrast. FINDINGS: CEREBRUM: The ventricles are normal for age. No evidence of midline shift, mass lesion, hemorrhage or acute in farction. No extraaxial fluid collections are seen. The pituitary gland and suprasellar cistern are normal in configuration. WHITE MATTER: No significant signal abnormalities are seen in the white matter. POSTERIOR FOSSA: The cerebellum and brainstem are intact. The 4th ventricle is midline. The cerebellopontine angle is unremarkable. The cerebellar tonsils are normal in position. DIFFUSION IMAGING: No focal areas of restricted diffusion are seen. No evidence of acute infarction. EXTRACRANIAL: The visualized portions of the orbits and paranasal sinuses are unremarkable. CONCLUSION: 1. Examination within normal limits for age. No recent infarct. No mass effect or shift. Walter Omalley MD on August 13, 2017 at 18:06 Board Certified Radiologist. This report was verified electronically.
[2017-08-13 20:00] VITALS: BP 126/87; PULSE 95; PULSE 96; RESP 20; TEMP 98.3; O2SAT 99
--- NOTE | 2017-08-13 20:00 | EKG ---
Date Performed: 08/13/2017 Time Performed: 12:03:12 PTAGE: 52 years EKG: Sinus rhythm Since previous tracing, no significant change noted NORMAL ECG PREVIOUS TRACING : 09/17/2015 08.45 DOCTOR: Justo Etienne Interpretating Date/Time 08/13/2017 19:55:47
[2017-08-13] MEDS: DOCUSATE SODIUM 50 MG/SENNA 8.6 MG TAB PO SCH (21:00)
[2017-08-13] MEDS: SODIUM CHLORIDE 0.9% FLUSH 10 ML FLUSH IV FLUSH SCH (21:24)
[2017-08-13] MEDS: buPROPion HCL 150 MG SUSTAINED RELEASE TAB PO SCH (21:24)
[2017-08-13 22:23] LABS: TROPONIN I LESS THAN 0.02 NG/ML (0.02-0.05)
[2017-08-14] VITALS: BP 134/82; PULSE 88; RESP 20; TEMP 97.9; O2SAT 97
[2017-08-14 00:31] LABS: CHOLESTEROL 169 MG/DL (120-200); TRIGLYCERIDES 95 MG/DL (42-150)
[2017-08-14 00:33] LABS: CHOLESTEROL/ HDL RATIO 1.37 RATIO; HDL CHOLESTEROL 122.9 MG/DL (40.0-60.0); LDL CHOLESTEROL 27 MG/DL (0-99)
[2017-08-14 04:00] VITALS: BP 138/74; PULSE 79; RESP 20; TEMP 97.1; O2SAT 98
[2017-08-14 08:00] VITALS: BP 138/81; PULSE 90; RESP 14; TEMP 97.6; O2SAT 98
[2017-08-14] MEDS: DOCUSATE SODIUM 50 MG/SENNA 8.6 MG TAB PO SCH (08:59)
[2017-08-14] MEDS: buPROPion HCL 150 MG SUSTAINED RELEASE TAB PO SCH (09:00)
[2017-08-14] MEDS ORDERED: ASPIRIN 81 MG CHEW TAB CHEW SCH (09:00)
[2017-08-14] MEDS ORDERED: MULTIVITAMINS/MINERALS THERAPEUTIC TAB PO SCH (09:00)
[2017-08-14] MEDS ORDERED: FOLIC ACID 1 MG TAB PO SCH (09:00)
[2017-08-14] MEDS ORDERED: HYDROCHLOROTHIAZIDE 12.5 MG CAP PO SCH (09:00)
[2017-08-14] MEDS ORDERED: ESCITALOPRAM OXALATE 10 MG TAB PO SCH (09:00)
[2017-08-14] MEDS ORDERED: THIAMINE HCL 100 MG TAB PO SCH (09:00)
[2017-08-14] MEDS ORDERED: LISINOPRIL 20 MG TAB PO SCH (09:00)
--- NOTE | 2017-08-14 09:06 | HHI.PR ---
Subjective Remarks Follow up hypertension and left upper extremity weakness and numbness. Patient seen and examined, lying in bed awake and alert. States she feels much better. Tolerating PO intake. Denies any vomiting or diarrhea. VSS are stable overnight. No chest pain. ACS ruled out. 1230: Patient complaints of nausea, will give Phenergan supp. Did tolerate lunch today. Objective Vitals Vital Signs Date Time Temp Pulse Resp B/P (MAP) Pulse Ox O2 Delivery O2 Flow Rate FiO2 08/14/17 04:00 97.1 79 20 138/74 (95) 98 08/14/17 00:00 97.9 88 20 134/82 (99) 97 08/13/17 22:51 20 08/13/17 20:00 98.3 95 20 126/87 (100) 99 08/13/17 20:00 96 08/13/17 16:00 97.2 86 18 134/86 (102) 97 08/13/17 15:57 08/13/17 15:47 90 20 159/96 (117) 99 08/13/17 14:43 95 18 161/102 (121) 99 Room Air 08/13/17 13:13 90 18 182/103 (129) 99 Room Air 08/13/17 13:13 99 Room Air 08/13/17 11:56 Room Air 08/13/17 11:32 98.4 104 16 179/110 (133) 99 I/O 08/13/17 08/13/17 08/13/17 08/14/17 08/14/17 08/14/17 07:00 15:00 23:00 07:00 15:00 23:00 Intake Total 100 ml Balance 100 ml Intake Oral 0 ml IV Total 100 ml # Voids 3 Result Diagram: 08/13/17 1225 08/13/17 1225 Imaging Last Impressions Head CT 08/13/17 1152 Signed Impressions: Service Date/Time: Sunday, August 13, 2017 12:07 - CONCLUSION: No acute intracranial abnormality is identified. Juan Garcia MD Chest X-Ray 08/13/17 1152 Signed Impressions: Service Date/Time: Sunday, August 13, 2017 12:17 - CONCLUSION: No acute cardiopulmonary abnormality is identified. Juan Garcia MD Brain MRI 08/13/17 0000 Signed Impressions: Service Date/Time: Sunday, August 13, 2017 17:46 - CONCLUSION: 1. Examination within normal limits for age. No recent infarct. No mass effect or shift. Walter Omalley MD Objective Remarks GENERAL: Well-developed, well-nourished patient in NAD. SKIN: Warm and dry. No rash. HEAD: Normocephalic. Atraumatic. EYES: Pupils equal and round. No scleral icterus. No injection or drainage. ENT: No nasal bleeding or discharge. Mucous membranes pink and moist. NECK: Supple. Trachea midline. CARDIOVASCULAR: Regular rate and rhythm. S1, S2 noted. No murmur appreciated. RESPIRATORY: No accessory muscle use. Clear to auscultation. Breath sounds equal bilaterally. GASTROINTESTINAL: Abdomen soft, non-tender, nondistended. Normoactive bowel sounds x4. MUSCULOSKELETAL: No obvious deformities. Extremities without clubbing, cyanosis , or edema. NEUROLOGICAL: Awake and alert. No obvious cranial nerve deficits. Motor grossly within normal limits. 5/5 muscle strength in bilateral upper and lower extremities. Normal speech. PSYCHIATRIC: Appropriate mood and affect; insight and judgment normal. A/P Problem List: (1) Numbness and tingling in left upper extremity ICD Code: R20.0 - Anesthesia of skin; R20.2 - Paresthesia of skin (2) Hypertension ICD Code: I10 - Essential (primary) hypertension Assessment and Plan This is a pleasant 52-year-old female patient with a known medical history of hypertension, diabetes and history of TIA who presented to the ED with complaints of 3 days of nausea, vomiting and diarrhea with associated left arm and finger numbness and tingling. Left upper extremity numbness and tingling rule out acute CVA/TIA versus uncontrolled hypertension - Head CT reviewed upon presentation showing normal examination. Order for brain MRI. Follow. - Hemoglobin A1c pending. Lipid panel reviewed, unremarkable. - Chest x-ray reviewed showing no acute cardiopulmonary abnormality. Supplemental O2 as needed. Patient is comfortable on room air. - No arrhythmias overnight on cardiac telemetry. EKG reviewed, sinus rhythm with controlled heart rate, no ST changes to indicate ischemia. Will rule out any possibility of ACS, serial EKGs and serial troponins ordered. - ACS ruled out with serial EKGs and serial troponins. Patient never had chest pain and did not complain of any chest pain overnight. All left upper extremity numbness and tingling resolved. All symptoms resolved. - CBC and BMP reviewed, essentially unremarkable. Hypertension, chronic and uncontrolled: Patient presented with significant elevated blood pressure. Restarted on home medications. Blood pressure stable. Alcoholism, chronic: Patient encouraged cessation of alcohol. Patient states she is receiving counseling. No signs of withdrawal, no seizure activity. Patient does have some nausea, this could be secondary to withdrawal. Patient expressing interest in cessation of alcohol, provided Librium for a few days to assist with withdrawal process. Patient shows motivation in quitting. Type II diabetes mellitus, chronic: Accu-Chek before meals at bedtime, sliding scale, cover as needed. A1c is pending. Blood sugar trends reviewed, controlled. Depression, chronic: Continue home medications. Supportive care. DVT prophylaxis: SCDs. Discharge Planning Will discharge home with orders for antiemetics and short course of Librium for withdrawal of alcohol. Patient encouraged to follow-up with support system, counseling and possibly AA. Follow-up PCP 1 week. Patient encouraged to return to ED if symptoms worsen or continue, patient stable at this time and agreeable to the plan. Nichole Tracy Aug 14, 2017 09:06
--- NOTE | 2017-08-14 09:07 | HHI.DCPOC ---
Discharge Care Plan Diagnosis: (1) Numbness and tingling in left upper extremity (2) Hypertension (3) Chest pain Goals to Promote Your Health * To prevent worsening of your condition and complications * To maintain your health at the optimal level Directions to Meet Your Goals Take your medications as prescribed Follow your dietary instruction Follow activity as directed Keep your appointments as scheduled Take your immunizations and boosters as scheduled If your symptoms worsen call your PCP, if no PCP go to Urgent Care Center or Emergency Room Smoking is Dangerous to Your Health. Avoid second hand smoke Call the 24-hour hour crisis hotline for domestic abuse at Nichole Tracy Aug 14, 2017 09:07
[2017-08-14] MEDS: INSULIN ASPART SUPPLEMENTAL SCALE SQ SCH (09:08)
[2017-08-14] MEDS: SODIUM CHLORIDE 0.9% FLUSH 10 ML FLUSH IV FLUSH SCH (09:12)
[2017-08-14] MEDS ORDERED: SUMAtriptan SUCCINATE 50 MG TAB PO ONE (09:15)
[2017-08-14] MEDS ORDERED: ERYTOIN10 LEFT EYE (09:18)
[2017-08-14] MEDS ORDERED: INFLUENZA VIRUS VACCINE (QUADRIVALENT) 0.5 ML SYR IM ONE (10:00)
[2017-08-14] MEDS ORDERED: PROM1SUP7 RECTAL (10:34)
[2017-08-14] MEDS ORDERED: PROMETHAZINE HCL 25 MG SUPP RECTAL PRN (11:00)
[2017-08-14] MEDS ORDERED: CHLO5CAP4 PO (12:36)
--- NOTE | 2017-08-14 20:01 | EKG ---
Date Performed: 08/13/2017 Time Performed: 21:08:52 PTAGE: 52 years EKG: Sinus rhythm NORMAL ECG Since the PREVIOUS TRACING , no significant change noted PREVIOUS TRACIN08/13/2017 15.25 DOCTOR: Evelyn Fowler Interpretating Date/Time 08/14/2017 19:59:42
--- NOTE | 2017-08-14 20:01 | EKG ---
Date Performed: 08/13/2017 Time Performed: 15:25:53 PTAGE: 52 years EKG: Sinus rhythm NORMAL ECG Since the PREVIOUS TRACING , no significant change noted PREVIOUS TRACIN08/13/2017 12.03 DOCTOR: Evelyn Fowler Interpretating Date/Time 08/14/2017 19:59:33
[2017-08-15 11:45] LABS: HEMOGLOBIN A1C 5.4 % (4.3-6.0)
== END 2017-08-14 13:17 | disposition home or self-care (01) ==
LOC: PHED 11:28 → PHEDA 13:37 → PH3A 15:56
PROVIDERS: ADMIT Hospitalist; ATTEND Hospitalist
DX: R07.9 Chest pain, unspecified (principal); R20.2 Paresthesia of skin; R20.0 Anesthesia of skin; R53.1 Weakness; J45.909 Unspecified asthma, uncomplicated; F41.9 Anxiety disorder, unspecified; F32.9 Major depressive disorder, single episode, unspecified; I10 Essential (primary) hypertension; Z79.899 Other long term (current) drug therapy; Z86.73 Personal history of transient ischemic attack (TIA), and cerebral infarction without residual deficits; E11.9 Type 2 diabetes mellitus without complications; R19.7 Diarrhea, unspecified; R11.2 Nausea with vomiting, unspecified; Z98.84 Bariatric surgery status; Z79.84 Long term (current) use of oral hypoglycemic drugs; Z80.49 Family history of malignant neoplasm of other genital organs; Z80.0 Family history of malignant neoplasm of digestive organs; F10.20 Alcohol dependence, uncomplicated; Z23 Encounter for immunization
CPT/HCPCS: 70450; 70551; 71045; 80053; 80061; 82550; 82948; 83036; 83735; 84484; 85025; 85610; 85730; 90471; 90686; 93005; 96361; 96374; 96375; 96376; 99285; G0378; J2060; J2405; J2765; J7030; G0008; Q2038

== ENCOUNTER 2017-10-04 19:29 | Inpatient (IN) | payer SELFPAY ==
[~2017-10-04] VITALS: Ht 170.2 cm; Wt 131.5 kg
[~2017-10-04 19:29] MED LIST changes: +CHLO5CAP4 PO; +ERYTOIN10 LEFT EYE; -LISI2.5T3 PO; +LISI20TA PO; -PERC5TAB12 PO; +PROM1SUP7 RECTAL
[2017-10-04 19:39] VITALS: BP 120/84; PULSE 148; RESP 20; TEMP 99.6; O2SAT 98
--- NOTE | 2017-10-04 20:02 | PD ---
HPI Chief Complaint: Complaint Time Seen by Provider: 19:48 Travel History International Travel<30 days: No Contact w/Intl Traveler<30days: No Traveled to known affect area: No History of Present Illness HPI 52-year-old female complains of low abdominal pain, low back pain, dysuria and vomiting. Patient states that she started having urinary frequency and dysuria yesterday. Patient states that she started having chills and sweats since yesterday. Patient started having low abdominal pain, low back pain with vomiting today. Patient denies any headache. Patient denies any chest pain or shortness of breath. Patient states that the pain and cramping pain is sharp pain localized to lower abdomen and low back area. She denies any pain radiation. Patient denies any vaginal discharge or bleeding. Patient states that she has history of UTI and kidney infection in the past. Patient denies any chance of being . Patient has history of hypertension. Patient has history of diabetes in the past however blood sugar was normalized and she is not on any medication recently for diabetes. On a scale of 1-10 the pain is a 10. PFSH Past Medical History Arthritis: Yes (knees) Asthma: Yes (SEASONAL) Autoimmune Disease: No Anxiety: Yes Depression: Yes (intermittent) Heart Rhythm Problems: No Cancer: No Cardiovascular Problems: Yes Chest Pain: Yes (this admitting diag is chest pain, but pt denies) Congestive Heart Failure: No Cerebrovascular Accident: No Diabetes: Yes (no medications) Patient Takes Glucophage: No Diminished Hearing: No Endocrine: Yes Gastrointestinal Disorders: Yes (due to surgery, but nothing regular treated for) GERD: No Genitourinary: No Hiatal Hernia: No Hypertension: Yes Immune Disorder: No Musculoskeletal: Yes Neurologic: Yes Psychiatric: Yes Reproductive: No Respiratory: Yes (seasonal asthma,PNEUMONIA) Immunizations Current: Yes Migraines: Yes Seizures: Yes (2010 alcohol induced seizure) Sleep Apnea: No Thyroid Disease: Yes Ulcer: No Tetanus Vaccination: Unknown Influenza Vaccination: Yes ?: Not LMP: MENOPAUSE Menopausal: Yes Past Surgical History Abdominal Surgery: Yes (gallblader ) Cardiac Surgery: No Cholecystectomy: Yes Ear Surgery: No Endocrine Surgery: No Eye Surgery: No Genitourinary Surgery: No Gynecologic Surgery: No Oral Surgery: Yes (T & A 1971) Thoracic Surgery: No Tonsillectomy: Yes (1972) Other Surgery: Yes (gastric bypass 2008) Social History Alcohol Use: Yes (states 2-3 glasses of wine daily ) Tobacco Use: No (never) Substance Use: No (Denies) Allergies-Medications (Allergen,Severity, Reaction): Coded Allergies: morphine (Verified Allergy, Severe, "MY BODY SHUTS DOWN", 10/04/17) amoxicillin (Verified Allergy, Intermediate, VOMITING, 10/04/17) penicillin G (Verified Allergy, Intermediate, UNKNOWN, 10/04/17) aspirin (Verified Allergy, Mild, 10/04/17) vomitting adhesive (Verified Allergy, Unknown, welts, 10/04/17) codeine (Verified Allergy, Unknown, Nausea/Vomiting, 10/04/17) Reported Meds & Prescriptions Reported Meds & Active Scripts Active Phenergan Supp (Promethazine HCl) 25 Mg Supp 25 Mg RECTAL Q6H PRN 10 Days Imitrex (Sumatriptan Succinate) 50 Mg Tab 50 Mg PO ONCE PRN If a satisfactory response has not been obtained at 2 hours, a second dose may be administered Reported Lisinopril-Hctz 20-12.5 mg Tab (Lisinopril/Hydrochlorothiazide) 20 Mg-12.5 Mg Tablet 1 Tab PO DAILY Lexapro (Escitalopram Oxalate) 10 Mg Tab 10 Mg PO DAILY Wellbutrin SR 12 HR (Bupropion HCl) 150 Mg Tab 150 Mg PO Q12HR Review of Systems General / Constitutional: No: Fever Eyes: No: Visual changes HENT: No: Headaches Cardiovascular: No: Chest Pain or Discomfort Respiratory: No: Shortness of Breath Gastrointestinal: Positive: Nausea, Vomiting, Abdominal Pain Genitourinary: Positive: Frequency, Dysuria Musculoskeletal: No: Pain Skin: No Rash Neurologic: No: Weakness Psychiatric: No: Depression Endocrine: No: Polydipsia Hematologic/Lymphatic: No: Easy Bruising Physical Exam Narrative GENERAL: Well-nourished, well-developed patient. SKIN: Focused skin assessment warm/dry. HEAD: Normocephalic. EYES: No scleral icterus. No injection or drainage. NECK: Supple, trachea midline. No JVD or lymphadenopathy. CARDIOVASCULAR: Regular rate and rhythm without murmurs, gallops, or rubs. RESPIRATORY: Breath sounds equal bilaterally. No accessory muscle use. GASTROINTESTINAL: Abdomen soft, nondistended. Patient has moderate tenderness on palpation lower abdomen. No rebound tenderness. No mass. MUSCULOSKELETAL: No cyanosis, or edema. BACK: patient has moderate tenderness on palpation of lumbar area, without obvious deformity. Positive bilateral CVA tenderness. Neurologic exam: Normal. Data Data Last Documented VS Vital Signs Date Time Temp Pulse Resp B/P (MAP) Pulse Ox O2 Delivery O2 Flow Rate FiO2 10/04/17 21:13 99.2 10/04/17 21:11 115 18 99 Nasal Cannula Orders Orders Complete Blood Count With Diff (10/04/17 19:55) Comprehensive Metabolic Panel (10/04/17 19:55) Lipase (10/04/17 19:55) Urinalysis - C+S If Indicated (10/04/17 19:55) Ct Abd/Pel W Iv Contrast(Rout) (10/04/17 19:55) Iv Access Insert/Monitor (10/04/17 19:55) Ecg Monitoring (10/04/17 19:55) Oximetry (10/04/17 19:55) Ed Urine Pregnancytest Poc (10/04/17 19:55) Urine Culture (10/04/17 20:50) Iohexol 350 Inj (Omnipaque 350 Inj) (10/04/17 21:49) Levofloxacin 750 Mg Premix Inj (Levaquin (10/04/17 22:15) Sodium Chlor 0.9% 1000 Ml Inj (Ns 1000 M (10/04/17 22:15) Labs Laboratory Tests Test 10/04/17 20:00 10/04/17 20:50 White Blood Count 11.1 TH/MM3 Red Blood Count 4.37 MIL/MM3 Hemoglobin 14.6 GM/DL Hematocrit 43.8 % Mean Corpuscular Volume 100.2 FL Mean Corpuscular Hemoglobin 33.3 PG Mean Corpuscular Hemoglobin Concent 33.3 % Red Cell Distribution Width 15.9 % Platelet Count 224 TH/MM3 Mean Platelet Volume 7.8 FL Neutrophils (%) (Auto) 86.9 % Lymphocytes (%) (Auto) 5.5 % Monocytes (%) (Auto) 6.2 % Eosinophils (%) (Auto) 0.1 % Basophils (%) (Auto) 1.3 % Neutrophils # (Auto) 9.7 TH/MM3 Lymphocytes # (Auto) 0.6 TH/MM3 Monocytes # (Auto) 0.7 TH/MM3 Eosinophils # (Auto) 0.0 TH/MM3 Basophils # (Auto) 0.1 TH/MM3 CBC Comment DIFF FINAL Differential Comment Blood Urea Nitrogen 10 MG/DL Creatinine 1.10 MG/DL Random Glucose 115 MG/DL Total Protein 7.6 GM/DL Albumin 3.1 GM/DL Calcium Level 9.4 MG/DL Alkaline Phosphatase 136 U/L Aspartate Amino Transf (AST/SGOT) 22 U/L Alanine Aminotransferase (ALT/SGPT) 20 U/L Total Bilirubin 1.3 MG/DL Sodium Level 135 MEQ/L Potassium Level 3.8 MEQ/L Chloride Level 99 MEQ/L Carbon Dioxide Level 21.7 MEQ/L Anion Gap 14 MEQ/L Estimat Glomerular Filtration Rate 52 ML/MIN Lipase 77 U/L Urine Color YELLOW Urine Turbidity CLOUDY Urine pH 8.0 Urine Specific [place] 1.020 Urine Protein 300 OR GREATER mg/dL Urine Glucose (UA) NEG mg/dL Urine Ketones 15 mg/dL Urine Occult Blood LARGE Urine Nitrite NEG Urine Bilirubin NEG Urine Urobilinogen 2.0 MG/DL Urine Leukocyte Esterase LARGE Urine RBC INNUM /hpf Urine WBC INNUM /hpf Urine Squamous Epithelial Cells 0-5 /hpf Urine Bacteria FEW /hpf Microscopic Urinalysis Comment CULTURE INDICATED MDM Medical Decision Making Medical Screen Exam Complete: Yes Emergency Medical Condition: Yes Interpretation(s) 22:04 PM. CBC WBC 11.1. Hemoglobin 14.6 hematocrit 43.8. MCV 100.2. 86 neutrophil. Sodium 135. Creatinine 1.10. GFR 52. Total bili 1.3. UA positive for WBC RBC and bacteria. Differential Diagnosis Differential diagnosis including UTI, pyelonephritis, nephrolithiasis, colitis, PID,. Narrative Course 52-year-old female with dysuria frequency, low abdominal pain, low back pain. Normal saline solution 1 L IV bolus. Levaquin 750 mg IV. Dilaudid 0.5 mg IV. Zofran 4 mg IV. Diagnosis Primary Impression: Pyelonephritis Admitting Information Admitting Physician Requests: Admit Avery Domingo MD October 04, 2017 20:02
[2017-10-04 20:28] VITALS: BP 125/76; PULSE 115; RESP 20; O2SAT 99
[2017-10-04 20:32] LABS: CHLORIDE 99 MEQ/L (98-107); SODIUM (NA) 135 MEQ/L (136-145)
[2017-10-04 20:33] LABS: AUTOMATED NEUTROPHIL # 9.7 TH/MM3 (1.8-7.7); BASOPHIL # 0.1 TH/MM3 (0-0.2); BASOPHIL % 1.3 % (0.0-2.0); EOSINOPHIL % 0.1 % (0.0-4.0); HEMATOCRIT 43.8 % (35.0-46.0); HEMOGLOBIN 14.6 GM/DL (11.6-15.3); LYMPH % 5.5 % (9.0-44.0); LYMPHOCYTE # 0.6 TH/MM3 (1.0-4.8); MEAN CELL VOLUME 100.2 FL (80.0-100.0); MEAN CORPUSCULAR HEMOGLOBIN 33.3 PG (27.0-34.0); MEAN CORPUSCULAR HGB CONC 33.3 % (32.0-36.0); MEAN PLATELET VOLUME 7.8 FL (7.0-11.0); MONO % 6.2 % (0.0-8.0); MONOCYTE # 0.7 TH/MM3 (0-0.9); NEUT % 86.9 % (16.0-70.0); PLATELET COUNT 224 TH/MM3 (150-450); RED BLOOD COUNT 4.37 MIL/MM3 (4.00-5.30); RED CELL DISTRIBUTION WIDTH 15.9 % (11.6-17.2); WHITE BLOOD COUNT 11.1 TH/MM3 (4.0-11.0)
[2017-10-04 20:36] LABS: ALBUMIN 3.1 GM/DL (3.4-5.0); BICARBONATE 21.7 MEQ/L (21.0-32.0); BLOOD UREA NITROGEN 10 MG/DL (7-18); CALCIUM 9.4 MG/DL (8.5-10.1); GLUCOSE,RANDOM 115 MG/DL (74-106)
[2017-10-04 20:39] LABS: ALT (GPT) 20 U/L (10-53); AST (GOT) 22 U/L (15-37); GLOMERULAR FILTRATION RATE 52 ML/MIN (>89)
[2017-10-04 20:40] LABS: TOTAL BILIRUBIN ADULT 1.3 MG/DL (0.2-1.0)
[2017-10-04 20:41] LABS: TOTAL PROTEIN 7.6 GM/DL (6.4-8.2)
[2017-10-04 20:42] LABS: ALKALINE PHOSPHATASE 136 U/L (45-117)
[2017-10-04 21:01] LABS: BLOOD, URINE LARGE (NEG); GLUCOSE,URINE NEG (NEG); KETONE, URINE 15 mg/dL (NEG); NITRITE,URINE NEG (NEG); URINE COLOR YELLOW (YELLW/STRAW); URINE LEUKOCYTE ESTERASE LARGE (NEG)
[2017-10-04 21:11] VITALS: BP 119/81; PULSE 115; RESP 18; O2SAT 99
[2017-10-04 21:13] VITALS: TEMP 99.2
[2017-10-04 21:20] LABS: BILIRUBIN, URINE NEG (NEG)
[2017-10-04 21:25] LABS: RBC, URINE INNUM /hpf (0-3); WBC, URINE INNUM /hpf (0-5)
[2017-10-04 21:26] LABS: BACTERIA, URINE FEW /hpf; SQUAMOUS EPITHELIAL CELL URINE 0-5 /hpf (0-5)
[2017-10-04] MEDS ORDERED: IOHEXOL 350 MG/ML 10 ML VIAL (for RAD DIAG) IVCONTRAST ONE (21:49)
[2017-10-04] MEDS ORDERED: LEVOFLOXACIN 750 MG PREMIX INJ 150 ML IV ONE (22:15)
[2017-10-04] MEDS ORDERED: SODIUM CHLOR 0.9% 1000 ML INJ 1,000 ML IV ONE (22:15)
[2017-10-04] MEDS ORDERED: HYDROmorphone HCL PF 2 MG/ML VIAL IV PUSH ONE (22:15)
[2017-10-04] MEDS ORDERED: ONDANSETRON HCL 4 MG/2 ML VIAL IV PUSH ONE (22:15)
--- NOTE | 2017-10-04 22:24 | RADRPT ---
EXAM DATE/TIME: 10/04/2017 21:33 [facility] COMPARISON: No previous studies available for comparison. INDICATIONS : Bilateral flank pain. IV CONTRAST: 100 cc Omnipaque 350 (iohexol) IV ORAL CONTRAST: No oral contrast ingested. RADIATION DOSE: 21.84 CTDIvol (mGy) MEDICAL HISTORY : Diabetes mellitus type 2. Hypertension. SURGICAL HISTORY : Cholecystectomy. ENCOUNTER: Initial ACUITY: 1 day PAIN SCALE: 10/10 LOCATION: Bilateral flank TECHNIQUE: Volumetric scanning of the abdomen and pelvis was performed. Using automated exposure control and ad justment of the mA and/or kV according to patient size, radiation dose was kept as low as reasonably achievable to obtain optimal diagnostic quality images. DICOM format image data is available electro nically for review and comparison. FINDINGS: LOWER LUNGS: The visualized lower lungs are clear. LIVER: Diffusely diminished attenuation consistent with steatosis. No evidence of focal mass or biliary duct al dilatation. Gallbladder surgically absent. SPLEEN: Normal size without lesion. PANCREAS: Within normal limits. KIDNEYS: Normal in size and shape. There is no mass, stone or hydronephrosis. ADRENAL GLANDS: Within normal limits. VASCULAR: There is no aortic aneurysm. BOWEL/MESENTERY: Previous gastric bypass. No abnormal dilatation of bowel. No focal wall thickening or inflammatory ch anges. ABDOMINAL WALL: Within normal limits. RETROPERITONEUM: There is no lymphadenopathy. BLADDER: No wall thickening or mass. REPRODUCTIVE: Within normal limits. INGUINAL: There is no lymphadenopathy or hernia. MUSCULOSKELETAL: Within normal limits for patient age. CONCLUSION: No acute CT findings in the abdomen or pelvis. Juan Mcfarland MD on October 04, 2017 at 22:18 Board Certified Radiologist. This report was verified electronically.
[2017-10-04 22:27] VITALS: BP 126/73; PULSE 105; RESP 17; O2SAT 99
[2017-10-04] MEDS ORDERED: BISACODYL 10 MG SUPP RECTAL PRN (23:30)
[2017-10-04] MEDS ORDERED: ACETAMINOPHEN 325 MG TAB PO PRN (23:30)
[2017-10-04] MEDS ORDERED: NALOXONE HCL 0.4 MG/ML AMP IV PUSH PRN (23:30)
[2017-10-04] MEDS ORDERED: MAGNESIUM HYDROXIDE SUSP 30 ML CUP PO PRN (23:30)
[2017-10-04] MEDS ORDERED: HYDROmorphone HCL PF 4 MG/ML VIAL IV PUSH PRN (23:30)
[2017-10-04] MEDS ORDERED: LACTULOSE SYRUP 20 GM/30 ML CUP PO PRN (23:30)
[2017-10-04] MEDS ORDERED: SENNOSIDES 8.6 MG TAB PO PRN (23:30)
[2017-10-04 23:37] VITALS: BP 135/76; PULSE 98; RESP 18; TEMP 99; O2SAT 98
[2017-10-05] MEDS: SODIUM CHLOR 0.9% 1000 ML INJ 1,000 ML IV SCH ×3 (00:24→19:21)
[2017-10-05] MEDS ORDERED: LEXA20TA PO (00:26)
[2017-10-05 00:31] VITALS: BP 131/76; PULSE 96; RESP 22; TEMP 97.4; O2SAT 98
[2017-10-05] MEDS: HYDROmorphone HCL PF 0.5 MG/0.5 ML SYRINGE IV PUSH PRN ×5 (02:49→22:05)
[2017-10-05] MEDS: ONDANSETRON HCL 4 MG/2 ML VIAL IVP PRN ×3 (04:23→22:18)
[2017-10-05 06:49] LABS: AUTOMATED NEUTROPHIL # 8.4 TH/MM3 (1.8-7.7); BASOPHIL % 0.1 % (0.0-2.0); EOSINOPHIL % 0.2 % (0.0-4.0); HEMATOCRIT 37.4 % (35.0-46.0); HEMOGLOBIN 12.5 GM/DL (11.6-15.3); LYMPH % 9.9 % (9.0-44.0); LYMPHOCYTE # 1.1 TH/MM3 (1.0-4.8); MEAN CELL VOLUME 101.2 FL (80.0-100.0); MEAN CORPUSCULAR HEMOGLOBIN 33.8 PG (27.0-34.0); MEAN CORPUSCULAR HGB CONC 33.4 % (32.0-36.0); MEAN PLATELET VOLUME 7.7 FL (7.0-11.0); MONO % 12.3 % (0.0-8.0); MONOCYTE # 1.3 TH/MM3 (0-0.9); NEUT % 77.5 % (16.0-70.0); PLATELET COUNT 193 TH/MM3 (150-450); RED CELL DISTRIBUTION WIDTH 15.5 % (11.6-17.2); WHITE BLOOD COUNT 10.8 TH/MM3 (4.0-11.0)
[2017-10-05 06:50] LABS: CALCIUM 8.7 MG/DL (8.5-10.1)
[2017-10-05 06:51] LABS: BICARBONATE 28.3 MEQ/L (21.0-32.0)
[2017-10-05 06:54] LABS: CREATININE 0.93 MG/DL (0.50-1.00)
[2017-10-05] MEDS: DOCUSATE SODIUM 50 MG/SENNA 8.6 MG TAB PO SCH ×2 (08:18→20:54)
[2017-10-05] MEDS: SODIUM CHLORIDE 0.9% FLUSH 10 ML FLUSH IV FLUSH SCH ×2 (08:24→19:21)
[2017-10-05] MEDS: PHENAZOPYRIDINE HCL 100 MG TAB PO SCH ×3 (09:08→22:04)
[2017-10-05] MEDS: KETOROLAC TROMETHAMINE 30 MG/ML (IVP) VIAL IV PUSH PRN ×2 (09:12→20:54)
[2017-10-05 09:28] VITALS: BP 118/73; PULSE 89; RESP 20; TEMP 96.6
[2017-10-05] MEDS ORDERED: diphenhydrAMINE HCL 50 MG CAP PO PRN (10:00)
[2017-10-05] MEDS: ESCITALOPRAM OXALATE 20 MG TAB PO SCH (10:19)
[2017-10-05] MEDS: buPROPion HCL 150 MG SUSTAINED RELEASE TAB PO SCH ×2 (10:19→20:54)
[2017-10-05] MEDS: SODIUM CHLORIDE 0.9% FLUSH 10 ML FLUSH IV FLUSH PRN ×5 (10:51→22:18)
[2017-10-05] MEDS: NYSTATIN 100,000 U/GM PWD 15 GM BTL TOPICAL SCH ×2 (10:55→20:55)
--- NOTE | 2017-10-05 12:07 | HHI.HP ---
[facility] Primary Care Physician Markos De La O MD Admission Diagnosis Bilateral pyelonephritis Diagnoses: Chief Complaint: Subjective fevers, back pain and dysuria Travel History International Travel<30 Days: No Contact w/Intl Traveler <30 Da: No Traveled to Known Affected Are: No History of Present Illness This patient is a 52-year-old female with a BMI of 45 comes in with 1-2 days of bilateral back pain, radiating into the lower abdomen associated with nausea and vomiting. She had severe urinary frequency and dysuria with urgency. She reports no history of recent antibiotics. She arrived emergency room with a temperature of 9.2 and a pulse of 115 and appears to have been septic on arrival. Imaging of the abdomen and pelvis was relatively unremarkable. Patient did have urinalysis which was abnormal and has been treated for acute pyelonephritis. Pain was severe and relieved with IV Dilaudid. Patient recommended for further evaluation treatment due to severe pyelonephritis Review of Systems Constitutional: DENIES: Diaphoretic episodes, Fatigue, Fever, Weight gain, Weight loss, Chills, Dizziness, Change in appetite, Night Sweats Endocrine: DENIES: Abnorml menstrual pattern, Heat/cold intolerance, Polydipsia , Polyuria, Polyphagia Eyes: DENIES: Blurred vision, Diplopia, Eye inflammation, Eye pain, Vision loss , Photosensitivity, Double Vision Ears, nose, mouth, throat: DENIES: Tinnitus, Hearing loss, Vertigo, Nasal discharge, Oral lesions, Throat pain, Hoarseness, Ear Pain, Running Nose, Epistaxis, Sinus Pain, Toothache, Odynophagia Respiratory: DENIES: Apneas, Cough, Snoring, Wheezing, Hemoptysis, Sputum production, Shortness of breath Gastrointestinal: DENIES: Abdominal pain, Black stools, Bloody stools, Constipation, Diarrhea, Nausea, Vomiting, Difficulty Swallowing, Anorexia Genitourinary: COMPLAINS OF: Urinary incontinence, Urgency, Dysuria, DENIES: Abnormal vaginal bleeding, Dysmenorrhea, Dyspareunia, Sexual dysfunction, Urinary frequency, Hematuria, Nocturia, Vaginal discharge Musculoskeletal: COMPLAINS OF: Back pain, DENIES: Joint pain, Muscle aches, Stiffness, Joint Swelling, Neck pain Integumentary: DENIES: Abnormal pigmentation, Pruritus, Rash, Nail changes, Breast masses, Breast skin changes, Nipple discharge Hematologic/lymphatic: DENIES: Bruising, Lymphadenopathy Immunologic/allergic: DENIES: Eczema, Urticaria Psychiatric: COMPLAINS OF: Anxiety, Depression (Without suicidal or homicidal intent), DENIES: Confusion, Mood changes, Hallucinations, Agitation, Suicidal Ideation, Homicidal Ideation, Delusions Except as stated in HPI: all other systems reviewed are Neg Past Family Social History Past Medical History Depression, anxiety Hypertension Arthritis Obesity Past Surgical History Gastric bypass Cholecystectomy Tonsils Reported Medications Reviewed in the EMR Allergies: Coded Allergies: morphine (Verified Allergy, Severe, "MY BODY SHUTS DOWN", 10/04/17) amoxicillin (Verified Allergy, Intermediate, VOMITING, 10/04/17) penicillin G (Verified Allergy, Intermediate, UNKNOWN, 10/04/17) aspirin (Verified Allergy, Mild, 10/04/17) vomitting adhesive (Verified Allergy, Unknown, welts, 10/04/17) codeine (Verified Allergy, Unknown, Nausea/Vomiting, 10/04/17) Active Ordered Medications Reviewed in the EMR Family History Hypertension Social History No current tobacco or alcohol dependency Physical Exam Vital Signs Vital Signs Date Time Temp Pulse Resp B/P (MAP) Pulse Ox O2 Delivery O2 Flow Rate FiO2 10/05/17 10:12 18 10/05/17 09:28 96.6 89 20 118/73 (88) 10/05/17 07:21 18 10/05/17 00:31 97.4 96 22 131/76 (94) 98 10/05/17 00:11 10/04/17 23:37 99.0 98 18 135/76 (95) 98 Room Air 10/04/17 23:04 16 10/04/17 22:27 105 17 126/73 (90) 99 Room Air 10/04/17 21:13 99.2 10/04/17 21:11 115 18 119/81 (94) 99 Nasal Cannula 10/04/17 20:28 Room Air 10/04/17 20:28 115 20 125/76 (92) 99 Room Air 10/04/17 19:39 99.6 148 20 120/84 (96) 98 Physical Exam GENERAL: This is a well-nourished, well-developed patient, in no apparent distress. SKIN: No rashes, ecchymoses or lesions. Cool and dry. HEAD: Atraumatic. Normocephalic. No temporal or scalp tenderness. EYES: Pupils equal round and reactive. Extraocular motions intact. No scleral icterus. No injection or drainage. ENT: Nose without bleeding, purulent drainage or septal hematoma. Throat without erythema, tonsillar hypertrophy or exudate. Uvula midline. Airway patent. NECK: Trachea midline. No JVD or lymphadenopathy. Supple, nontender, no meningeal signs. CARDIOVASCULAR: Regular rate and rhythm without murmurs, gallops, or rubs. RESPIRATORY: Clear to auscultation. Breath sounds equal bilaterally. No wheezes , rales, or rhonchi. GASTROINTESTINAL: Abdomen soft, non-tender, nondistended. No hepato-splenomegaly , or palpable masses. No guarding. MUSCULOSKELETAL: Extremities without clubbing, cyanosis, or edema. No joint tenderness, effusion, or edema noted. No calf tenderness. Negative Homans sign bilaterally. NEUROLOGICAL: Awake and alert. Cranial nerves II through XII intact. Motor and sensory grossly within normal limits. Five out of 5 muscle strength in all muscle groups. Normal speech. Laboratory Laboratory Tests Test 10/04/17 20:00 10/04/17 20:50 10/05/17 06:07 White Blood Count 11.1 10.8 Red Blood Count 4.37 3.70 Hemoglobin 14.6 12.5 Hematocrit 43.8 37.4 Mean Corpuscular Volume 100.2 101.2 Mean Corpuscular Hemoglobin 33.3 33.8 Mean Corpuscular Hemoglobin Concent 33.3 33.4 Red Cell Distribution Width 15.9 15.5 Platelet Count 224 193 Mean Platelet Volume 7.8 7.7 Neutrophils (%) (Auto) 86.9 77.5 Lymphocytes (%) (Auto) 5.5 9.9 Monocytes (%) (Auto) 6.2 12.3 Eosinophils (%) (Auto) 0.1 0.2 Basophils (%) (Auto) 1.3 0.1 Neutrophils # (Auto) 9.7 8.4 Lymphocytes # (Auto) 0.6 1.1 Monocytes # (Auto) 0.7 1.3 Eosinophils # (Auto) 0.0 0.0 Basophils # (Auto) 0.1 0.0 CBC Comment DIFF FINAL DIFF FINAL Differential Comment Blood Urea Nitrogen 10 11 Creatinine 1.10 0.93 Random Glucose 115 106 Total Protein 7.6 Albumin 3.1 Calcium Level 9.4 8.7 Alkaline Phosphatase 136 Aspartate Amino Transf (AST/SGOT) 22 Alanine Aminotransferase (ALT/SGPT) 20 Total Bilirubin 1.3 Sodium Level 135 139 Potassium Level 3.8 3.7 Chloride Level 99 102 Carbon Dioxide Level 21.7 28.3 Anion Gap 14 9 Estimat Glomerular Filtration Rate 52 63 Lipase 77 Urine Color YELLOW Urine Turbidity CLOUDY Urine pH 8.0 Urine Specific [place] 1.020 Urine Protein 300 OR GREATER Urine Glucose (UA) NEG Urine Ketones 15 Urine Occult Blood LARGE Urine Nitrite NEG Urine Bilirubin NEG Urine Urobilinogen 2.0 Urine Leukocyte Esterase LARGE Urine RBC INNUM Urine WBC INNUM Urine Squamous Epithelial Cells 0-5 Urine Bacteria FEW Microscopic Urinalysis Comment CULTURE INDICATED Date/Time Source Procedure Growth Status 10/04/17 20:50 Urine Clean Catch Urine Culture Pending Received Result Diagram: 10/05/1760610/05/17606 Imaging Last Impressions Abdomen/Pelvis CT 10/04/171954 Signed Impressions: Service Date/Time: Wednesday, October 04, 2017 21:33 - CONCLUSION: No acute CT findings in the abdomen or pelvis. Juan Mcfarland MD Assessment and Plan Problem List: (1) Pyelonephritis ICD Code: N12 - Tubulo-interstitial nephritis, not specified as acute or chronic Status: Acute Plan: Continue with empiric Levaquin Follow-up cultures (2) Hypertension ICD Code: I10 - Essential (primary) hypertension Plan: Currently controlled on home regimen of lisinopril hydrochlorothiazide (3) Depression with anxiety ICD Code: F41.8 - Other specified anxiety disorders Plan: Continue Wellbutrin, Shilpa Montoya MD October 05, 2017 12:07
[2017-10-05 12:55] VITALS: BP 118/66; PULSE 77; RESP 17; TEMP 96.1; O2SAT 97
[2017-10-05] MEDS ORDERED: ALPRAZolam 0.25 MG TAB PO ONE (14:45)
[2017-10-05 16:54] VITALS: BP 128/71; PULSE 78; RESP 18; TEMP 96.2; O2SAT 98
[2017-10-05 20:00] VITALS: BP 123/79; PULSE 80; RESP 22; TEMP 96.3; O2SAT 98
[2017-10-05] MEDS ORDERED: LEVOFLOXACIN 750 MG PREMIX INJ 150 ML IV SCH (22:00)
[2017-10-05] MEDS: ALPRAZolam 0.5 MG TAB PO PRN (22:04)
[2017-10-05] MEDS ORDERED: ALUMINUM/MAGNESIUM/SIMETH 30 ML CUP PO ONE (23:00)
[2017-10-06] VITALS: BP 96/54; PULSE 88; RESP 22; TEMP 96.8; O2SAT 98
[2017-10-06] MEDS: KETOROLAC TROMETHAMINE 30 MG/ML (IVP) VIAL IV PUSH PRN ×2 (02:35→08:25)
[2017-10-06] MEDS: ACETAMINOPHEN 325 MG TAB PO PRN ×2 (02:36→22:59)
[2017-10-06] MEDS: PHENAZOPYRIDINE HCL 100 MG TAB PO SCH ×3 (06:51→22:53)
[2017-10-06] MEDS: SODIUM CHLOR 0.9% 1000 ML INJ 1,000 ML IV SCH (06:51)
[2017-10-06] MEDS: HYDROmorphone HCL PF 0.5 MG/0.5 ML SYRINGE IV PUSH PRN (06:52)
[2017-10-06 07:50] VITALS: BP 132/84; PULSE 73; RESP 20; TEMP 96.6; O2SAT 97
[2017-10-06] MEDS: HYDROCHLOROTHIAZIDE 12.5 MG CAP PO SCH (08:12)
[2017-10-06] MEDS: buPROPion HCL 150 MG SUSTAINED RELEASE TAB PO SCH ×2 (08:15→19:59)
[2017-10-06] MEDS: LISINOPRIL 20 MG TAB PO SCH (08:16)
[2017-10-06] MEDS: ESCITALOPRAM OXALATE 20 MG TAB PO SCH (08:16)
[2017-10-06] MEDS: NYSTATIN 100,000 U/GM PWD 15 GM BTL TOPICAL SCH ×2 (08:16→22:53)
[2017-10-06] MEDS: DOCUSATE SODIUM 50 MG/SENNA 8.6 MG TAB PO SCH ×2 (08:16→19:59)
[2017-10-06] MEDS: SODIUM CHLORIDE 0.9% FLUSH 10 ML FLUSH IV FLUSH SCH ×2 (08:19→19:59)
[2017-10-06] MEDS: ONDANSETRON HCL 4 MG/2 ML VIAL IVP PRN (08:28)
[2017-10-06] MEDS ORDERED: LACTULOSE SYRUP 20 GM/30 ML CUP PO ONE (10:44)
[2017-10-06] MEDS ORDERED: SUMAtriptan SUCCINATE 50 MG TAB PO PRN (10:45)
[2017-10-06] MEDS ORDERED: BISACODYL EC 5 MG TABEC PO ONE (11:00)
[2017-10-06] MEDS: LEVOFLOXACIN 500 MG TAB PO SCH (11:21)
[2017-10-06] MEDS: oxyCODONE/ACETAMINOPHEN 7.5 MG/325 MG TAB PO PRN ×2 (11:22→20:00)
[2017-10-06 11:30] VITALS: BP 108/64; PULSE 74; RESP 20; TEMP 96.1; O2SAT 97
[2017-10-06] MEDS ORDERED: OXYC1TAB35 PO (11:33)
[2017-10-06] MEDS ORDERED: Nystatin Powder TOPICAL (11:33)
[2017-10-06] MEDS ORDERED: LEVA500T33 PO (11:34)
--- NOTE | 2017-10-06 11:35 | HHI.PR ---
Subjective Remarks Patient seen and evaluated today in follow-up for pyelonephritis which appears to be improved. Complaining of constipation and headache today. Objective Vitals Vital Signs Date Time Temp Pulse Resp B/P (MAP) Pulse Ox O2 Delivery O2 Flow Rate FiO2 10/06/17 07:50 96.6 73 20 132/84 (100) 97 10/06/17 07:32 20 10/06/17 03:35 20 10/06/17 03:35 20 10/06/17 00:00 96.8 88 22 96/54 (68) 98 10/05/17 20:00 96.3 80 22 123/79 (94) 98 10/05/17 16:54 96.2 78 18 128/71 (90) 98 10/05/17 12:55 96.1 77 17 118/66 (83) 97 I/O 10/05/17 10/05/17 10/05/17 10/06/17 10/06/17 10/06/17 07:00 15:00 23:00 07:00 15:00 23:00 Intake Total 1630 ml 2200 ml 1580 ml Balance 1630 ml 2200 ml 1580 ml Intake Oral 480 ml 1200 ml 580 ml IV Total 1150 ml 1000 ml 1000 ml # Voids 5 4 7 # Bowel Movements 0 1 1 Result Diagram: 10/05/1760610/05/17606 Imaging Last Impressions Abdomen/Pelvis CT 10/04/171954 Signed Impressions: Service Date/Time: Wednesday, October 04, 2017 21:33 - CONCLUSION: No acute CT findings in the abdomen or pelvis. Juan Mcfarland MD Objective Remarks GENERAL: This is a well-nourished, well-developed patient, in no apparent distress. CARDIOVASCULAR: Regular rate and rhythm without murmurs, gallops, or rubs. RESPIRATORY: Clear to auscultation. Breath sounds equal bilaterally. No wheezes , rales, or rhonchi. GASTROINTESTINAL: Abdomen soft, non-tender, nondistended. Normal active bowel sounds MUSCULOSKELETAL: Extremities without clubbing, cyanosis, or edema. NEURO: Alert & Oriented x4 to person, place, time, situation. Moves all ext x4 A/P Problem List: (1) Pyelonephritis ICD Code: N12 - Tubulo-interstitial nephritis, not specified as acute or chronic Status: Acute Plan: Continue with empiric po Levaquin Follow-up cultures (2) Hypertension ICD Code: I10 - Essential (primary) hypertension Plan: Currently controlled on home regimen of lisinopril hydrochlorothiazide (3) Depression with anxiety ICD Code: F41.8 - Other specified anxiety disorders Plan: Continue Wellbutrin, Lexapro (4) Candidiasis of breast ICD Code: B37.89 - Other sites of candidiasis Plan: Improved with nystatin Discharge Planning Discharge home when tolerating oral regimen and pending urine cultures Shilpa Calhoun MD October 06, 2017 11:35
--- NOTE | 2017-10-06 11:39 | HHI.DCPOC ---
Discharge Care Plan Diagnosis: (1) Candidiasis of breast (2) Pyelonephritis Goals to Promote Your Health * To prevent worsening of your condition and complications * To maintain your health at the optimal level Directions to Meet Your Goals Take your medications as prescribed Follow your dietary instruction Follow activity as directed Keep your appointments as scheduled Take your immunizations and boosters as scheduled If your symptoms worsen call your PCP, if no PCP go to Urgent Care Center or Emergency Room Smoking is Dangerous to Your Health. Avoid second hand smoke Call the 24-hour hour crisis hotline for domestic abuse at Shilpa Calhoun MD October 06, 2017 11:39
[2017-10-06] MEDS ORDERED: ONDANSETRON ODT 4 MG TAB PO PRN (13:00)
[2017-10-06] MEDS ORDERED: PROMETHAZINE HCL 25 MG SUPP RECTAL PRN (13:00)
[2017-10-06 15:33] VITALS: BP 124/61; PULSE 74; RESP 20; TEMP 97.2; O2SAT 99
[2017-10-06] MEDS ORDERED: oxyCODONE/ACETAMINOPHEN 7.5 MG/325 MG TAB PO ONE (16:30)
[2017-10-06] MEDS: ALPRAZolam 0.5 MG TAB PO PRN (19:59)
[2017-10-06 20:00] VITALS: BP 129/78; PULSE 76; RESP 20; TEMP 97.9; O2SAT 99
[2017-10-07] VITALS: BP 105/55; PULSE 79; RESP 22; TEMP 97; O2SAT 99
[2017-10-07] MEDS: oxyCODONE/ACETAMINOPHEN 7.5 MG/325 MG TAB PO PRN ×2 (02:29→08:50)
[2017-10-07] MEDS: PHENAZOPYRIDINE HCL 100 MG TAB PO SCH ×2 (06:21→13:47)
[2017-10-07 07:30] VITALS: BP 148/57; PULSE 72; RESP 20; TEMP 96.7; O2SAT 98
[2017-10-07] MEDS: HYDROCHLOROTHIAZIDE 12.5 MG CAP PO SCH (08:49)
[2017-10-07] MEDS: LISINOPRIL 20 MG TAB PO SCH (08:49)
[2017-10-07] MEDS: buPROPion HCL 150 MG SUSTAINED RELEASE TAB PO SCH (08:49)
[2017-10-07] MEDS: ESCITALOPRAM OXALATE 20 MG TAB PO SCH (08:50)
[2017-10-07] MEDS: DOCUSATE SODIUM 50 MG/SENNA 8.6 MG TAB PO SCH (08:50)
[2017-10-07] MEDS: SODIUM CHLORIDE 0.9% FLUSH 10 ML FLUSH IV FLUSH SCH (08:52)
[2017-10-07] MEDS: NYSTATIN 100,000 U/GM PWD 15 GM BTL TOPICAL SCH (08:55)
[2017-10-07] MEDS: ALPRAZolam 0.5 MG TAB PO PRN (09:53)
[2017-10-07 11:00] VITALS: BP 114/67; PULSE 84; RESP 20; TEMP 97; O2SAT 96
--- NOTE | 2017-10-07 11:01 | HHI.DS ---
Discharge Summary Admission Date October 05, 2017 at 12:54 Discharge Date: October 07, 2017 Admitting Diagnosis Bilateral pyelonephritis (1) Pyelonephritis ICD Code: N12 - Tubulo-interstitial nephritis, not specified as acute or chronic Status: Acute (2) Hypertension ICD Code: I10 - Essential (primary) hypertension (3) Depression with anxiety ICD Code: F41.8 - Other specified anxiety disorders (4) Candidiasis of breast ICD Code: B37.89 - Other sites of candidiasis Procedures None Brief History - From Admission This patient is a 52-year-old female with a BMI of 45 comes in with 1-2 days of bilateral back pain, radiating into the lower abdomen associated with nausea and vomiting. She had severe urinary frequency and dysuria with urgency. She reports no history of recent antibiotics. She arrived emergency room with a temperature of 9.2 and a pulse of 115 and appears to have been septic on arrival. Imaging of the abdomen and pelvis was relatively unremarkable. Patient did have urinalysis which was abnormal and has been treated for acute pyelonephritis. Pain was severe and relieved with IV Dilaudid. Patient recommended for further evaluation treatment due to severe pyelonephritis CBC/BMP: 10/05/17 0607 10/05/17 0607 Significant Findings Laboratory Tests Test 10/04/17 20:00 10/04/17 20:50 10/05/17 06:07 White Blood Count 11.1 TH/MM3 (4.0-11.0) Mean Corpuscular Volume 100.2 FL (80.0-100.0) 101.2 FL (80.0-100.0) Neutrophils (%) (Auto) 86.9 % (16.0-70.0) 77.5 % (16.0-70.0) Lymphocytes (%) (Auto) 5.5 % (9.0-44.0) Neutrophils # (Auto) 9.7 TH/MM3 (1.8-7.7) 8.4 TH/MM3 (1.8-7.7) Lymphocytes # (Auto) 0.6 TH/MM3 (1.0-4.8) Creatinine 1.10 MG/DL (0.50-1.00) Random Glucose 115 MG/DL (74-106) Albumin 3.1 GM/DL (3.4-5.0) Alkaline Phosphatase 136 U/L (45-117) Total Bilirubin 1.3 MG/DL (0.2-1.0) Sodium Level 135 MEQ/L (136-145) Estimat Glomerular Filtration Rate 52 ML/MIN (>89) 63 ML/MIN (>89) Urine Turbidity CLOUDY (CLEAR) Urine Protein 300 OR GREATER mg/dL Urine Ketones 15 mg/dL (NEG) Urine Occult Blood LARGE (NEG) Urine Leukocyte Esterase LARGE (NEG) Urine RBC INNUM /hpf (0-3) Urine WBC INNUM /hpf (0-5) Urine Bacteria FEW /hpf (NONE) Red Blood Count 3.70 MIL/MM3 (4.00-5.30) Monocytes (%) (Auto) 12.3 % (0.0-8.0) Monocytes # (Auto) 1.3 TH/MM3 (0-0.9) PE at Discharge GENERAL: This is a well-nourished, well-developed patient, in no apparent distress. CARDIOVASCULAR: Regular rate and rhythm without murmurs, gallops, or rubs. RESPIRATORY: Clear to auscultation. Breath sounds equal bilaterally. No wheezes , rales, or rhonchi. GASTROINTESTINAL: Abdomen soft, non-tender, nondistended. Normal active bowel sounds MUSCULOSKELETAL: Extremities without clubbing, cyanosis, or edema. NEURO: Alert & Oriented x4 to person, place, time, situation. Moves all ext x4 Hospital Course This patient was seen and treated for pyelonephritis. She was given antibiotics empirically. Cultures were positive only for mixed nina. Patient pain was quite uncontrolled and she did require some IV narcotics as well as anti-emetics. She did recover. Her constipation was resolved and she was discharged home Pt Condition on Discharge: Good Discharge Disposition: Discharge Home Discharge Time: <= 30 minutes Discharge Instructions DIET: Follow Instructions for: As Tolerated, No Restrictions Activities you can perform: Regular-No Restrictions Follow up Referrals: PCP Follow-up - 1 Week New Medications: Levofloxacin (Levaquin) 500 Mg Tablet 500 MG PO DAILY@1100 for Infection, #5 TAB Oxycodone HCl/Acetaminophen (Oxycodon-Acetaminophen 7.5-325) 7.5 Mg-325 Mg Tablet 1 TAB PO Q6H PRN for PAIN SCALE 1 TO 10, #10 TAB [Nystatin Powder] () 15 APPLIC/15 GM POWD 1 APPLIC TOPICAL Q12HR for Infection, #14 APPLIC Continued Medications: Bupropion HCl ER 12 HR (Wellbutrin SR 12 HR) 150 Mg Tab 150 MG PO Q12HR for Control Depression, TAB 0 Refills Escitalopram (Lexapro) 20 Mg Tab 20 MG PO DAILY, #30 TAB 0 Refills Lisinopril/Hydrochlorothiazide (Lisinopril-Hctz 20-12.5 mg Tab) 20 Mg-12.5 Mg Tablet 1 TAB PO DAILY Promethazine Supp (Phenergan Supp) 25 Mg Supp 25 MG RECTAL Q6H PRN for NAUSEA OR VOMITING for 10 Days, #40 SUPP 0 Refills Sumatriptan (Imitrex) 50 Mg Tab 50 MG PO ONCE PRN for MIGRAINE HEADACHE, #6 TAB 0 Refills If a satisfactory response has not been obtained at 2 hours, a second dose may be administered Shilpa Calhoun MD October 07, 2017 11:01
[2017-10-07] MEDS: LEVOFLOXACIN 500 MG TAB PO SCH (11:27)
== END 2017-10-07 14:23 | disposition home or self-care (01) | DRG 690 ==
LOC: PHED 19:29 → PHEDA 23:20 → PH3B 10-05 00:03 → OBSVTOIN 10-05 12:54
PROVIDERS: ADMIT Hospitalist; ATTEND Hospitalist
DX: N10 Acute pyelonephritis (principal); I10 Essential (primary) hypertension; Z68.42 Body mass index [BMI] 45.0-49.9, adult; B37.2 Candidiasis of skin and nail; E11.9 Type 2 diabetes mellitus without complications; F41.8 Other specified anxiety disorders; E66.9 Obesity, unspecified; K59.00 Constipation, unspecified; G43.909 Migraine, unspecified, not intractable, without status migrainosus; R30.0 Dysuria; Z87.440 Personal history of urinary (tract) infections; Z98.84 Bariatric surgery status; Z90.49 Acquired absence of other specified parts of digestive tract; Z88.6 Allergy status to analgesic agent; Z88.5 Allergy status to narcotic agent; Z88.0 Allergy status to penicillin; Z91.048 Other nonmedicinal substance allergy status
CPT/HCPCS: 74177; 80048; 80053; 81001; 83690; 84703; 85025; 87086; J1170; J1885; J1956; J2405; J7030; Q0163; Q9967